=== PATIENT | male | born 1970 | race Hispanic/Latino ===

== ENCOUNTER 2018-05-16 12:57 | Outpatient (CLI) | payer BC ==
--- NOTE | 2018-05-16 13:41 | ULT ---
BILATERAL RENAL ULTRASOUND: Date: 05/16/18 HISTORY: UTI. FINDINGS: The right kidney measures 11.2 cm in length and the left kidney measures 13.2 cm in length. No focal mass or hydronephrosis is seen on either side. The cortical echogenicity and thickness is normal. The urinary bladder is unremarkable. IMPRESSION: Left kidney larger than the right, otherwise unremarkable exam. POS: OFF
== END 2018-05-16 12:58 | disposition home or self-care (01) ==
LOC: BICULT 12:57
PROVIDERS: ATTEND Family Medicine
DX: N39.0 Urinary tract infection, site not specified (principal); N28.89 Other specified disorders of kidney and ureter
CPT/HCPCS: 76770

== ENCOUNTER 2025-02-15 07:53 | Outpatient (CLI) | payer BC | END 2025-02-15 07:54 | disposition home or self-care (01) | LOC: ULT 07:53 | PROVIDERS: ATTEND Family Medicine | DX: N18.31 Chronic kidney disease, stage 3a (principal); K76.0 Fatty (change of) liver, not elsewhere classified | CPT/HCPCS: 76770 ==